=== PATIENT | male | born 1970 | race Hispanic/Latino ===

== ENCOUNTER 2020-02-09 16:26 | Outpatient (CLI) | payer OTHER, SELFPAY ==
[2020-02-09 18:58] LABS: Hemoglobin 14.9 g/dL (14.0-18.0); Mean Corpuscular HGB Conc 35.5 g/dl (32-36); Mean Corpuscular Hemoglobin 31.1 pg (26-34); Mean Corpuscular Volume 87.7 fl (80-100); Mean Platelet Volume 12.2 fl (7.4-10.4); Platelet Count Result 177 k/mm3 (150-375); Red Blood Count 4.79 M/mm3 (4.6-6.20); Red Cell Distribution Width 13.2 % (11.5-14.5); White Blood Count 9.6 K/mm3 (4.5-10.0)
[2020-02-09 19:08] LABS: INR 1.1; Prothrombin Time 13.4 Seconds (11.1-14.7)
[2020-02-09 19:09] LABS: Alanine Aminotransferase 62 U/L (4-50); Albumin Level 4.5 g/dL (3.5-5.1); Alkaline Phosphatase 92 U/L (38-126); Aspartate Amino Transferase 41 U/L (17-59); Bilirubin,Total 0.4 mg/dL (0.2-1.3); Partial Thromboplastin Time 32.6 SECONDS (22.3-36.8)
[2020-02-09 19:16] LABS: Transferrin 275 mg/dL (206-381)
[2020-02-09 19:40] LABS: Erythrocyte Sedimentation Rate 20 mm/hr (0-20)
[2020-02-09 19:44] LABS: Iron 130 ug/dL (49-181)
[2020-02-09 19:54] LABS: Percent Iron Saturation 34 % (20-50)
[2020-02-09 20:19] LABS: Hepatitis B Surface Antigen Negative (Negative)
[2020-02-09 20:24] LABS: Hepatitis B Core IgM Result Negative (Negative)
[2020-02-09 20:36] LABS: Hepatitis B Surface Anti Res Negative; Hepatitis C Virus Antibody Negative (Negative)
[2020-02-13 14:53] LABS: Actin Antibody (IgG) <20 U (<20)
[2020-02-14 11:37] LABS: Mitochondrial (M2) Ab (IgG) <=20.0 U (<=20.0)
[2020-02-14 11:51] LABS: Alpha-1-Antitrypsin, QN 149 mg/dL (83-199); Ceruloplasmin 25 mg/dL (18-36)
== END 2020-02-09 16:27 | disposition home or self-care (01) ==
PROVIDERS: PCP Emergency Medicine; Visit Provider Internal Medicine Gastroenterology
DX: R94.5 Abnormal results of liver function studies (principal)
CPT/HCPCS: 36415; 80076; 82103; 82390; 82728; 83516; 83520; 83540; 83550; 84466; 85027; 85610; 85652; 85730; 86038; 86705; 86706; 86803; 87340

== ENCOUNTER 2020-07-10 09:45 | Outpatient (CLI) | payer OTHER, SELFPAY ==
--- NOTE | ~2020-07-10 | XR_ITS ---
XR chest 2V DATE: 07/10/2020 10:43 INDICATION: Shortness of breath. Covid-positive 4 weeks ago. TECHNIQUE: PA and lateral views COMPARISON: 11/27/2018 portable upright AP chest FINDINGS: Mild patchy infiltrates are noted in the mid and lower lung zones, left greater than right, suggesting bilateral pneumonia. Normal heart size. No hilar or mediastinal enlargement. No pulmonary vascular congestion or pleural e ffusion or pneumothorax. IMPRESSION: Mild patchy bilateral pulmonary infiltrates Reviewed, dictated and finalized at location A. QUE FURNITURE RESTORER
[2020-07-10 11:37] LABS: Hemoglobin A1C 9.2 % (<5.7)
[2020-07-10 12:05] LABS: MALB Creatinine Ratio 29.1 mg/g (0-30); Microalbumin Urine Random 27.4 mg/L (0-16.7)
== END 2020-07-10 09:46 | disposition home or self-care (01) ==
PROVIDERS: PCP Emergency Medicine; Visit Provider Emergency Medicine
DX: R91.8 Other nonspecific abnormal finding of lung field (principal)
CPT/HCPCS: 36415; 71046; 82043; 83036

== ENCOUNTER 2020-07-17 10:08 | Outpatient (CLI) | payer OTHER, SELFPAY ==
--- NOTE | ~2020-07-17 | US_ITS ---
US right upper quadrant INDICATION: Increased liver function test. PROCEDURE: Realtime right upper abdominal ultrasound. COMPARISON: No prior studies for comparison. FINDINGS: The pancreas is normal without focal mass or pancreatic ductal dilation. Increased liver e chotexture, consistent with fatty infiltration. There is a 11.2 cm cyst. There is normal directional flow in the portal vein. The gallbladder is normal without stones, gallbladder wall thickening or pericholecystic fluid. Comm on bile duct measures 6 mm. No sonographic Sandy's sign. IMPRESSION: 1: Fatty infiltration of the liver. 2: 11.2 cm liver cyst. Reviewed, dictated and finalized at location A. SCRUB TECH
== END 2020-07-17 10:09 | disposition home or self-care (01) ==
PROVIDERS: PCP Emergency Medicine; Visit Provider Internal Medicine Gastroenterology
DX: R94.5 Abnormal results of liver function studies (principal); K76.89 Other specified diseases of liver
CPT/HCPCS: 76705

== ENCOUNTER 2020-08-13 14:58 | Outpatient (CLI) | payer OTHER, SELFPAY ==
--- NOTE | ~2020-08-13 | XR_ITS ---
XR chest 2V 08/13/2020 15:18 Indication: Pneumonia Procedure: PA and lateral views of the chest Comparison: Comparison to multiple prior studies sequentially, with oldest reviewed study dated 07/27. Findings: There are linear infiltrates of the left mid lung zone. Heart size normal. Right lung clear . No pleural effusion, edema or pneumothorax. No acute osseous abnormality. Impression: 1: Linear infiltrates of the left midlung zone, most likely atelectasis/scarring. Reviewed, dictated and finalized at location A. G MANAGER Impression: 1: Linear infiltrates of the left midlung zone, most likely atelectasis/scarmallorie velazco
== END 2020-08-13 14:59 | disposition home or self-care (01) ==
LOC: ANHIMG 15:02
PROVIDERS: PCP Emergency Medicine; Visit Provider Emergency Medicine
DX: J18.9 Pneumonia, unspecified organism (principal)
CPT/HCPCS: 71046

== ENCOUNTER 2020-09-20 08:04 | Outpatient (CLI) | payer OTHER, SELFPAY ==
[2020-09-20 08:32] LABS: Hematocrit 43.5 % (42.0-52.0); Hemoglobin 15.2 g/dL (14.0-18.0); Mean Corpuscular HGB Conc 34.9 g/dl (32-36); Mean Corpuscular Hemoglobin 30.3 pg (26-34); Mean Corpuscular Volume 86.8 fl (80-100); Platelet Count Result 195 k/mm3 (150-375); Red Blood Count 5.01 M/mm3 (4.6-6.20); White Blood Count 8.9 K/mm3 (4.5-10.0)
[2020-09-20 08:47] LABS: Hemoglobin A1C 8.1 % (<5.7)
== END 2020-09-20 08:05 | disposition home or self-care (01) ==
LOC: ANHLAB 08:05
PROVIDERS: PCP Emergency Medicine; Visit Provider Emergency Medicine
DX: E11.9 Type 2 diabetes mellitus without complications (principal)
CPT/HCPCS: 36415; 83036; 85027

== ENCOUNTER 2021-02-23 18:52 | Emergency (ER) | payer OTHER, SELFPAY ==
[2021-02-23 19:01] VITALS: BP 138/87; PULSE 57; RESP 16; TEMP 35.8; O2SAT 99
--- NOTE | 2021-02-23 19:23 | ED.GENADULT ---
HPI - General Adult General Chief complaint: Unspecified Stated complaint: bumps in mouth Time Seen by Provider: 02/23/21 19:23 Source: patient Limitations: no limitations History of Present Illness HPI narrative: Willi Roldan is a 50 yo male with the PMH of hypertension diabetes and high cholesterol [facility] of irritation of the roof of his mouth close to his teeth and upper palate that he relates to getting his Covid vaccine on Thursday. However he states that he really has not only had the symptoms in the last 2 days, and only hurts when he eats Related Data Home Medications Medication Instructions Recorded Confirmed lisinopril 02/23/21 metformin mg 02/23/21 simvastatin mg 02/23/21 sitagliptin [Januvia] mg 02/23/21 Allergies Allergy/AdvReac Type Severity Reaction Status Date / Time No Known Allergies Allergy Unverified 08/14/20 09:19 Review of Systems Review of Systems: CONSTITUTIONAL: Denies fever, chills, sweats. EYES: Denies visual changes, redness, discharge. ENT: Denies rhinorrhea, congestion, sore throat, otalgia. CARDIOVASCULAR: Denies chest pain, palpitations, edema. RESPIRATORY: Denies dyspnea, wheezing, cough GASTROINTESTINAL: Denies abdominal pain, nausea, vomiting, diarrhea. GENITOURINARY: Denies dysuria, hematuria, abnormal discharge SKIN: Denies rash or itching. Pain of the roof of his mouth near his upper front teeth NEUROLOGIC: Denies numbness, or focal weakness. PSYCHIATRIC: Denies anxiety or depression. [facility] Past Medical History Medical History Diabetes High cholesterol Hypertension Family History Family History Other Diabetes mellitus Hypertension Social History Social History (Updated 02/23/21 @ 19:30 by Connie Rodriguez CNP) Smoking status: Never smoker Alcohol intake: never Comments At time of signature, I agree with nursing past medical, surgical, social and family history. There is no relevant family history pertinent to the presenting complaint. Exam Narrative: GENERAL: This is a well-nourished, well-developed patient, in mild distress. HEAD: normocephalic, atraumatic. EYES: Sclera clear/white. Vision is grossly intact. EARS: External ears normal, Hearing grossly intact. NOSE: External nose normal without nasal discharge, nares without redness, no rhinorrhea. THROAT: Mucous membranes moist, posterior pharynx pink, small reddish irritation like lesions at roof of mouth similar to mild burn NECK: Neck supple, non-tender CARDIOVASCULAR: Regular rate and rhythm without murmurs, gallops, or rubs. RESPIRATORY: Clear to auscultation. Breath sounds equal bilaterally. No wheezes, rales, or rhonchi. GASTROINTESTINAL: Abdomen soft, large pannus SKIN: warm, intact with no suspicious lesions or rash, good texture and turgor. NEURO: awake, alert, and oriented to person, place and time. There were no obvious focal neurologic abnormalities. Steady gait EXTREMITIES: Normal range of motion. BACK: Nontender without deformity Course Course Emergency Course: Patient here with complaints of pain to the roof of his mouth that he attributes to the Covid vaccine however it started 2 days ago, hurts when he eats Patient given viscous lidocaine to help and told to gargle with salt water Vital Signs Vital signs: Vital Signs Temperature 96.5 F L 02/23/21 19:01 Pulse Rate 57 L 02/23/21 19:01 Respiratory Rate 16 02/23/21 19:01 Blood Pressure 138/87 02/23/21 19:01 Pulse Oximetry 99 02/23/21 19:01 Temperature 96.5 F L 02/23/21 19:01 Pulse Rate 57 L 02/23/21 19:01 Respiratory Rate 16 02/23/21 19:01 Blood Pressure 138/87 02/23/21 19:01 Pulse Oximetry 99 02/23/21 19:01 Medical Decision Making Differential Diagnosis Differential Diagnosis: Gingival disease versus aphthous ulcer versus burn versus poor dentition
== END 2021-02-23 19:38 | disposition home or self-care (01) ==
PROVIDERS: Emergency Provider Nurse Practitioner; PCP Emergency Medicine
DX: K12.0 Recurrent oral aphthae (principal); E11.9 Type 2 diabetes mellitus without complications; E78.00 Pure hypercholesterolemia, unspecified; I10 Essential (primary) hypertension
CPT/HCPCS: 99213; G0463

== ENCOUNTER 2021-05-06 08:51 | Outpatient (CLI) | payer OTHER, SELFPAY ==
--- NOTE | ~2021-05-06 | XR_ITS ---
EXAMINATION: XR chest 2V EXAM DATE: 05/06/2021 09:24 INDICATION: Groundglass opacities and atelectasis. TECHNIQUE: Frontal and lateral projections of the chest obtained and reviewed. Comparison is made to prior examination from 08/13/2020. FINDINGS: The lungs are clear. There are no pleural effusions. The cardiomediastinal silhouette is within normal limits. There is no pneumothorax suspected. The bones and soft tissues are unremarkab le. IMPRESSION: Unremarkable chest x-ray exam. Reviewed, dictated and finalized at location B.
[2021-05-06 09:58] LABS: Hemoglobin A1C 10.6 % (<5.7)
[2021-05-06 10:13] LABS: Creatinine Urine 68.8 mg/dL
[2021-05-06 10:18] LABS: Microalbumin Urine Random 7.6 mg/L (0-16.7)
== END 2021-05-06 08:52 | disposition home or self-care (01) ==
LOC: ANHIMG 08:59
PROVIDERS: PCP Emergency Medicine; Visit Provider Emergency Medicine
DX: E11.9 Type 2 diabetes mellitus without complications (principal)
CPT/HCPCS: 36415; 71046; 82043; 83036

== ENCOUNTER 2022-02-06 10:02 | Outpatient (CLI) | payer OTHER, SELFPAY ==
[2022-02-06 10:41] LABS: Hematocrit 44.8 % (42.0-52.0); Hemoglobin 15.4 g/dL (14.0-18.0); Mean Corpuscular HGB Conc 34.4 g/dl (32-36); Mean Corpuscular Hemoglobin 29.9 pg (26-34); Mean Platelet Volume 10.6 fl (7.4-10.4); Platelet Count Result 219 k/mm3 (150-375); Red Blood Count 5.15 M/mm3 (4.6-6.20); Red Cell Distribution Width 12.4 % (11.5-14.5); White Blood Count 8.2 K/mm3 (4.5-10.0)
[2022-02-06 11:00] LABS: Alanine Aminotransferase 77 U/L (6-50); Albumin Level 4.7 g/dL (3.5-5.1); Alkaline Phosphatase 125 U/L (38-126); Anion Gap 14 mmol/L (8-16); Aspartate Amino Transferase 38 U/L (17-59); Bilirubin,Total 0.6 mg/dL (0.2-1.3); Blood Urea Nitrogen 10 mg/dL (9-20); Calcium 9.4 mg/dL (8.4-10.2); Carbon Dioxide 22 mmol/L (22-30); Chloride 101 mmol/L (98-107); Cholesterol 229 mg/dL (0-200); Estimated Glomerular Filt Rate > 60; Glucose 249 mg/dL (65-110); HDL Direct 36 mg/dL; Sodium 137 mmol/L (137-145); Triglycerides 313 mg/dL (<150)
[2022-02-06 11:11] LABS: LDL Cholesterol Direct 127 mg/dL
[2022-02-06 11:28] LABS: Prostate Specific Antigen 1.2 ng/mL (< OR = 4.0)
[2022-02-06 12:12] LABS: Free T4 Free Thyroxine 1.01 ng/mL (0.78-2.19); Vitamin D 25 Hydroxy 40.5 ng/mL
[2022-02-06 12:34] LABS: Hemoglobin A1C 9.6 % (<5.7)
[2022-02-06 15:26] LABS: Appearance Urine Clear (Clear); Bilirubin Urine Negative (Negative); Color Urine Yellow (Yellow); Glucose Urine UA 3+ mg/dL (Negative); Ketones Urine 1+ mg/dL (Negative); Leukocyte Esterase Ur Negative LEU/UL (NEGATIVE); Nitrate Urine Negative (Negative); Protein Urine Negative (Negative); Specific Grav Ur 1.025 (1.001-1.035); Urobilinogen Urine 0.2 mg/dL (<2.0); pH Urine 5.5 (5.0-9.0)
[2022-02-06 15:33] LABS: Mucus Urine Rare /lpf; Squamous Epithelial Cell Urine Occasional /hpf (Few)
[2022-02-06 15:34] LABS: Add Urine Microscopic? YES; Blood Urine Trace-Intact (Negative)
[2022-02-06 21:45] LABS: Creatinine Urine 133.9 mg/dL
[2022-02-06 21:51] LABS: MALB Creatinine Ratio 11.2 mg/g (0-30)
== END 2022-02-06 10:03 | disposition home or self-care (01) ==
PROVIDERS: PCP Emergency Medicine; Visit Provider Emergency Medicine
DX: E11.9 Type 2 diabetes mellitus without complications (principal); I10 Essential (primary) hypertension; E78.5 Hyperlipidemia, unspecified; K76.89 Other specified diseases of liver
CPT/HCPCS: 36415; 80053; 80061; 81001; 82043; 82306; 83036; 84153; 84439; 84443; 85027; 87086; G0103

== ENCOUNTER 2023-01-31 21:17 | Emergency (ER) | payer OTHER, SELFPAY ==
--- NOTE | ~2023-01-31 | XR_ITS ---
EXAMINATION: XR chest 2V 01/31/2023 23:31 INDICATION: Chest pain PROCEDURE: PA and lateral views of the chest COMPARISON: Comparison to multiple prior studies sequentially, with oldest reviewed study dated 02/2019. FINDINGS: The lungs are clear. The cardiomediastinal silhouette is within normal limits. There are no pleural effusions. There is no pneumothorax suspected. There is chronic lingular atelectasis/sca rring unchanged. IMPRESSION: 1: NO ACUTE CARDIOPULMONARY DISEASE. Reviewed, dictated and finalized at location A.
[2023-01-31 21:23] VITALS: BP 154/84; PULSE 102; RESP 20; TEMP 37; O2SAT 97
[2023-01-31 21:58] VITALS: BP 150/94; PULSE 95; RESP 24; TEMP 36.4; O2SAT 100
[2023-01-31] MEDS: SODIUM CHLORIDE 0.9% IV 2,000 ML 999 ML (23:00)
[2023-01-31 23:22] LABS: Alanine Aminotransferase 46 U/L (6-50); Albumin Level 4.6 g/dL (3.5-5.1); Anion Gap 13 mmol/L (8-16); Aspartate Amino Transferase 39 U/L (17-59); Bilirubin,Total 0.9 mg/dL (0.2-1.3); Blood Urea Nitrogen 7 mg/dL (9-20); Calcium 8.9 mg/dL (8.4-10.2); Carbon Dioxide 23 mmol/L (22-30); Chloride 101 mmol/L (98-107); Estimated CRCL calculation 135 ml/min; Estimated Glomerular Filt Rate > 60; Glucose 269 mg/dL (65-110); Potassium 3.8 mmol/L (3.4-5.0); Sodium 137 mmol/L (137-145)
[2023-01-31 23:23] LABS: Alkaline Phosphatase 134 U/L (38-126); Lipase 50 U/L (23-300)
[2023-01-31] MEDS: IBUPROFEN 400 MG TABLET 800 MG (23:27)
--- NOTE | 2023-01-31 23:32 | ED.GENADULT ---
HPI - General Adult General Chief complaint: Nausea/Vomiting/Diarrhea Stated complaint: chills/vomiting/bodyaches Time Seen by Provider: 01/31/23 21:46 History of Present Illness HPI narrative: this is a 52-year-old male presenting with flu-like symptoms x2-3 days. patient is also complaining of fever chills and body aches. Patient denies nausea vomiting diarrhea chest pain difficulty breathing. patient says that he has been urinating more than usual. He is not taking his metformin as he does not feel well. Patient denies any other complaints. Patient took Tylenol prior to arrival and said he feels much better. Related Data Home Medications Medication Instructions Recorded Confirmed lisinopril 20 mg tablet 02/23/21 metformin 1,000 mg tablet mg 02/23/21 simvastatin 20 mg tablet mg 02/23/21 sitagliptin phosphate 100 mg mg 02/23/21 tablet (Januvia) Allergies Allergy/AdvReac Type Severity Reaction Status Date / Time No Known Allergies Allergy Verified 01/31/23 21:18 [facility] Past Medical History Medical History Diabetes High cholesterol Hypertension Family History Family History Other Diabetes mellitus Hypertension Social History Social History Smoking status: Never smoker Alcohol intake: never Exam Narrative: APPEARANCE: No apparent distress. Well-appearing Head: atraumatic. EYES: EOMI, NOSE: Atraumatic NECK: Trachea midline RESPIRATORY: No increased rate of breathing, clear to auscultation CARDIOVASCULAR: RRR, no peripheral edema ABDOMINAL: Non-distended, soft nontender no guarding or rebound MUSCULOSKELETAl: No obvious deformities NEURO: Alert. Moving 4/4 extremities SKIN:: Warm, dry. Normal color PSYCHIATRIC: Normal affect Course Vital Signs Vital signs: Vital Signs Temperature 98.6 F 01/31/23 21:23 Pulse Rate 102 H 01/31/23 21:23 Respiratory Rate 20 01/31/23 21:23 Blood Pressure 154/84 H 01/31/23 21:23 Pulse Oximetry 97 01/31/23 21:23 Oxygen Delivery Room Air 01/31/23 21:23 Temperature 97.5 F L 01/31/23 21:58 Pulse Rate 65 02/01/23 01:01 Respiratory Rate 20 02/01/23 01:01 Blood Pressure 143/85 H 02/01/23 01:01 Pulse Oximetry 95 02/01/23 01:01 Oxygen Delivery Room Air 01/31/23 21:23 Medical Decision Making MDM Narrative Medical decision making narrative: -Presentation: 52-year-old male presenting with 3 days of flu-like symptoms. 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 CBC normal. Metabolic panel unremarkable. UA negative. COVID positive. patient is vaccinated. No respiratory distress or oxygen requirements. Chest x-ray unremarkable. -Discussion of Management/Consultants: none -Dx tests considered but not ordered: none -Procedures: none -Interventions: 2 L normal saline, 800 mg Motrin -Shared decision making / Disposition: patient is positive for COVID. He is well appearing with stable vital signs. He is vaccinated and low risk. Patient will be discharged with primary care follow-up. -RX Motrin, Tylenol Vital Signs Vital Signs: Vital Signs Temperature 98.6 F 01/31/23 21:23 Pulse Rate 102 H 01/31/23 21:23 Respiratory Rate 20 01/31/23 21:23 Blood Pressure 154/84 H 01/31/23 21:23 Pulse Oximetry 97 01/31/23 21:23 Oxygen Delivery Room Air 01/31/23 21:23 Temperature 97.5 F L 01/31/23 21:58 Pulse Rate 65 02/01/23 01:01 Respiratory Rate 20 02/01/23 0
[2023-01-31 23:45] LABS: Basophils Absolute Auto 0.1 K/mm3 (0.0-0.1); Basophils Percent Auto 0.6 % (0.2-1.2); Eosinophils Absolute Auto 1.1 K/mm3 (0-0.3); Eosinophils Percent Auto 11.1 % (0-4.4); Hematocrit 42.2 % (42.0-52.0); Immature Granulocyte Absolute 0.03 K/mm3 (0.00-0.031); Immature Granulocyte Percent A 0.3 % (0-0.5); Lymphocytes Percent Auto 13.7 % (18.3-44.2); Mean Corpuscular HGB Conc 35.5 g/dl (32-36); Mean Corpuscular Hemoglobin 30.9 pg (26-34); Mean Platelet Volume 10.3 fl (7.4-10.4); Monocytes Absolute Auto 1.2 K/mm3 (0.1-0.6); Neutrophils Absolute Auto 5.8 K/mm3 (1.3-6.7); Neutrophils Percent Auto 61.3 % (45.5-73.1); Platelet Count Result 198 k/mm3 (150-375); Red Blood Count 4.85 M/mm3 (4.6-6.20); Red Cell Distribution Width 12.1 % (11.5-14.5); White Blood Count 9.5 K/mm3 (4.5-10.0)
[2023-01-31 23:54] LABS: Influenza A QL RT-PCR Negative (Negative); Influenza B QL RT-PCR Negative (Negative); RSV RNA, RT-PCR Negative (Negative); SARS-CoV-2 RNA PCR Positive (Negative)
[2023-02-01 00:12] VITALS: BP 138/76; PULSE 72; RESP 19; O2SAT 97
[2023-02-01 00:54] LABS: Appearance Urine Clear (Clear); Bilirubin Urine Negative (Negative); Blood Urine Negative (Negative); Color Urine Yellow (Yellow); Glucose Urine UA 1+ mg/dL (Negative); Ketones Urine Negative (Negative); Leukocyte Esterase Ur Negative LEU/UL (Negative); Nitrate Urine Negative (Negative); Protein Urine Negative (Negative); Specific Grav Ur 1.008 (1.001-1.035); Urobilinogen Urine 0.2 mg/dL (<2.0); pH Urine 6.5 (5.0-9.0)
[2023-02-01 00:55] LABS: Add Urine Microscopic? YES
[2023-02-01 00:56] LABS: RBC Urine 0-2 /hpf (0-2); Squamous Epithelial Cell Urine Few /hpf (Few); WBC Urine 0-3 /hpf (0-3)
[2023-02-01 01:01] VITALS: BP 143/85; PULSE 65; RESP 20; O2SAT 95
[2023-02-01 01:19] VITALS: BP 129/83; PULSE 68; RESP 19; TEMP 36.4; O2SAT 95
== END 2023-02-01 01:21 | disposition home or self-care (01) ==
PROVIDERS: Emergency Provider Emergency Medicine; PCP Emergency Medicine
DX: U07.1 COVID-19 (principal); E11.9 Type 2 diabetes mellitus without complications; E78.00 Pure hypercholesterolemia, unspecified; I10 Essential (primary) hypertension; Z79.84 Long term (current) use of oral hypoglycemic drugs
CPT/HCPCS: 36415; 71046; 80053; 81001; 83690; 85025; 87637; 96360; 99283; A9270; J7030

== ENCOUNTER 2024-05-28 08:26 | Outpatient (CLI) | payer OTHER, SELFPAY ==
[2024-05-28 10:16] LABS: Hematocrit 45.8 % (42.0-52.0); Hemoglobin 15.9 g/dL (14.0-18.0); Mean Corpuscular HGB Conc 34.7 g/dl (32-36); Mean Corpuscular Hemoglobin 30.3 pg (26-34); Mean Corpuscular Volume 87.4 fl (80-100); Mean Platelet Volume 10.3 fl (7.4-10.4); Platelet Count Result 225 k/mm3 (150-375); Red Blood Count 5.24 M/mm3 (4.6-6.20); Red Cell Distribution Width 11.8 % (11.5-14.5)
[2024-05-28 10:19] LABS: Add Urine Microscopic? NO; Appearance Urine Clear (Clear); Bilirubin Urine Negative (Negative); Blood Urine Negative (Negative); Color Urine Yellow (Yellow); Glucose Urine UA 3+ mg/dL (Negative); Ketones Urine Trace mg/dL (Negative); Leukocyte Esterase Ur Negative LEU/UL (Negative); Nitrate Urine Negative (Negative); Protein Urine Negative (Negative); Specific Grav Ur 1.022 (1.001-1.035); Urobilinogen Urine 0.2 mg/dL (<2.0)
[2024-05-28 10:36] LABS: Alanine Aminotransferase 75 U/L (6-50); Albumin Level 4.9 g/dL (3.5-5.1); Alkaline Phosphatase 131 U/L (38-126); Anion Gap 12 mmol/L (4-12); Aspartate Amino Transferase 43 U/L (17-59); Bilirubin,Total 0.9 mg/dL (0.2-1.3); Blood Urea Nitrogen 9 mg/dL (9-20); Calcium 9.5 mg/dL (8.4-10.2); Carbon Dioxide 26 mmol/L (22-30); Chloride 95 mmol/L (98-107); Cholesterol 234 mg/dL (0-200); Estimated Glomerular Filt Rate > 60; Glucose 286 mg/dL (65-110); HDL Direct 41 mg/dL; Potassium 4.2 mmol/L (3.4-5.0); Sodium 133 mmol/L (137-145); Triglycerides 285 mg/dL (<150)
[2024-05-28 10:46] LABS: LDL Cholesterol Direct 141 mg/dL
[2024-05-28 11:30] LABS: Free T4 Free Thyroxine 1.03 ng/mL (0.78-2.19)
[2024-05-28 11:53] LABS: Creatinine Urine 51.3 mg/dL
[2024-05-28 11:57] LABS: MALB Creatinine Ratio 12.7 mg/g (0-30); Microalbumin Urine Random 6.5 mg/L (0-16.7)
== END 2024-05-28 08:27 | disposition home or self-care (01) ==
PROVIDERS: PCP Emergency Medicine; Visit Provider Emergency Medicine
DX: K76.0 Fatty (change of) liver, not elsewhere classified (principal)
CPT/HCPCS: 36415; 80053; 80061; 81003; 82043; 82306; 83036; 84153; 84439; 84443; 85027

== ENCOUNTER 2024-05-31 08:42 | Outpatient (CLI) | payer OTHER, SELFPAY ==
--- NOTE | ~2024-05-31 | US_ITS ---
RIGHT UPPER QUADRANT ABDOMINAL ULTRASOUND (Doppler ultrasound interrogation techniques used as needed for this exam.) Ordering provider: Michael Herrera MD History: . Liver cyst . Comparison: None. FINDINGS: PANCREAS: Normal echotexture and size. PORTAL VEIN: Hepatopedal flow demonstrated. LIVER: Normal size and increased echogenicity. Measures 17.2 cm. No focal hepatic lesions or perihepa tic fluid collections are identified. Multiple cysts are seen with the largest measures 8.4 x 8.4 x 9.8 cm. Internal echoes seen in some cysts suggestive of a complex cysts. BILIARY DUCTS: No intra or extrahepatic biliary dilation. Common bile duct measures 5 mm in diameter which is normal for patient's age. GALLBLADDER: Normal. No stones, sludge, gallbladder wall thickening or pericholecystic fluid. Measures 2.8 cm. Negative sonographic Sandy's sign. RIGHT KIDNEY: Normal size measures 6.7 x 13.8 x 6.2 cm.. No hydronephrosis, solid renal mass, renal c alculi or perinephric fluid collections. No renal cysts. FREE FLUID: None visualized within the upper abdomen. IMPRESSION: Multiple hepatic cysts. Mild fat infiltration. Otherwise, normal right upper quadrant ultrasound. Reviewed, dictated and finalized at location A. ER CONTROL SUPERVISOR IMPRESSION: Multiple hepatic cysts. Mild fat infiltration. Otherwise, normal right upper qu adrant ultrasound.
== END 2024-05-31 08:43 | disposition home or self-care (01) ==
PROVIDERS: PCP Emergency Medicine; Visit Provider Emergency Medicine
DX: K76.89 Other specified diseases of liver (principal); K76.0 Fatty (change of) liver, not elsewhere classified
CPT/HCPCS: 76705

== ENCOUNTER 2024-07-01 05:03 | Emergency (ER) | payer OTHER, SELFPAY ==
--- NOTE | ~2024-07-01 | XR_ITS ---
Portable chest x-ray Comparison: 01/31/2023 Clinical History: Shortness of breath Findings: Lungs are clear, without focal consolidation or pleural effusion. Cardiomediastinal silho uette is stable. Bones and soft tissues are unremarkable. Impression: Clear lungs. Reviewed, dictated and finalized at location . ESSMAKER APPRENTICE Impression: Clear lungs.
--- NOTE | 2024-07-01 05:05 | ECG_ITS ---
Test Date: 2024-07-01 05:16:39 Measurements Intervals [place] Rate: 80 P: 8 MO: 158 QRS: -62 QRSD: 118 T: 23 QT: 324 QTc: 375 Interpretive Statements SINUS RHYTHM RIGHT BUNDLE BRANCH BLOCK [120+ ms QRS DURATION, UPRIGHT V1, 40+ ms S IN I/aVL/V4/V5/V6] LEFT ANTERIOR FASCICULAR BLOCK [QRS AXIS <= -45, QR IN I, RS IN II] No previous ECG available for comparison Electronically Signed On 07-01-2024 12:20:44 PIPELINE ENGINEER by Freddy Dash M.D.
[2024-07-01 05:12] VITALS: BP 160/101; PULSE 79; RESP 14; TEMP 36.8; O2SAT 97
[2024-07-01 05:22] VITALS: O2SAT 96
[2024-07-01 05:31] VITALS: PULSE 76
[2024-07-01 05:34] LABS: Basophils Absolute Auto 0.1 K/mm3 (0.0-0.1); Basophils Percent Auto 0.8 % (0.2-1.2); Eosinophils Absolute Auto 1.5 K/mm3 (0-0.3); Eosinophils Percent Auto 15.3 % (0-4.4); Hematocrit 45.2 % (42.0-52.0); Hemoglobin 15.7 g/dL (14.0-18.0); Immature Granulocyte Absolute 0.03 K/mm3 (0.00-0.031); Immature Granulocyte Percent A 0.3 % (0-0.5); Lymphocytes Absolute Auto 4.15 K/mm3 (0.9-3.2); Lymphocytes Percent Auto 42.6 % (18.3-44.2); Mean Corpuscular HGB Conc 34.7 g/dl (32-36); Mean Corpuscular Volume 89.3 fl (80-100); Mean Platelet Volume 10.3 fl (7.4-10.4); Monocytes Absolute Auto 0.8 K/mm3 (0.1-0.6); Monocytes Percent Auto 8.2 % (2.6-8.5); Neutrophils Absolute Auto 3.2 K/mm3 (1.3-6.7); Neutrophils Percent Auto 32.8 % (45.5-73.1); Platelet Count Result 217 k/mm3 (150-375); Red Blood Count 5.06 M/mm3 (4.6-6.20); Red Cell Distribution Width 12.3 % (11.5-14.5); White Blood Count 9.7 K/mm3 (4.5-10.0)
[2024-07-01 05:45] LABS: Alanine Aminotransferase 57 U/L (6-50); Albumin Level 4.8 g/dL (3.5-5.1); Alkaline Phosphatase 108 U/L (38-126); Anion Gap 9 mmol/L (4-12); Aspartate Amino Transferase 37 U/L (17-59); Bilirubin,Total 0.9 mg/dL (0.2-1.3); Blood Urea Nitrogen 9 mg/dL (9-20); Calcium 9.6 mg/dL (8.4-10.2); Carbon Dioxide 30 mmol/L (22-30); Chloride 99 mmol/L (98-107); Estimated CRCL calculation 111 ml/min; Estimated Glomerular Filt Rate > 60; Glucose 182 mg/dL (65-110); Potassium 3.6 mmol/L (3.4-5.0); Sodium 138 mmol/L (137-145)
[2024-07-01 06:08] VITALS: BP 148/89; PULSE 69; RESP 21; O2SAT 96
[2024-07-01 06:08] LABS: Influenza A QL RT-PCR Negative (Negative); Influenza B QL RT-PCR Negative (Negative); RSV RNA, RT-PCR Negative (Negative); SARS-CoV-2 RNA PCR Negative (Negative)
[2024-07-01 07:18] VITALS: BP 117/70; PULSE 70; RESP 18; O2SAT 96
[2024-07-01 08:16] LABS: Troponin I < 0.012 ng/mL (0.000-0.034)
[2024-07-01 08:16] LABS: Lipase 59 U/L (23-300)
[2024-07-01 08:30] LABS: Troponin I < 0.012 ng/mL (0.000-0.034)
--- NOTE | 2024-07-01 08:57 | ED.GENADULT ---
HPI - General Adult General Chief complaint: Shortness of Breath/Dyspnea Stated complaint: Shortness of breath Time Seen by Provider: 07/01/24 07:09 History of Present Illness HPI narrative: Patient is a 54-year-old male who presents ER with chest discomfort and nausea as well as shortness of breath. Began early in the morning. Unable to describe the discomfort. It does cause him to be nauseous. On arrival here it is all been alleviated. He has diabetes and high cholesterol. No exertional discomfort. No history of heart disease. No fevers or chills or sweats. He has noticed this previously in the mornings. Related Data Home Medications ?Medication ?Instructions ?Recorded ?Confirmed ?Last Taken ?Type lisinopril 20 mg tablet 02/23/21 Unknown History metformin 1,000 mg tablet mg 02/23/21 Unknown History simvastatin 20 mg tablet mg 02/23/21 Unknown History sitagliptin phosphate 100 mg mg 02/23/21 Unknown History tablet (Januvia) Allergies Allergy/AdvReac Type Severity Reaction Status Date / Time No Known Allergies Allergy Verified 07/01/24 05:03 Review of Systems Review of Systems: All systems reviewed & are unremarkable except as noted in HPI and below Constitutional: Constitutional: Reports no additional constitutional complaints ENT: Reports system reviewed and no additional complaints, except as documented Cardiovascular: Cardiovascular: Reports no additional cardiovascular complaints Gastrointestinal: Gastrointestinal: Reports no additional gastrointestinal complaints PMFSH Past Medical History Medical History Diabetes High cholesterol Hypertension Family History Family History Other Diabetes mellitus Hypertension Social History Social History Smoking status: Never smoker Alcohol intake: never Exam Narrative: GENERAL: Well-appearing, well-nourished, and in no acute distress. HEAD: Normocephalic, atraumatic. ENT: Mucous membranes moist. CHEST: Clear to auscultation. No respiratory distress. HEART: Regular rate and rhythm. Normal peripheral pulses. ABDOMEN: Soft, nontender, nondistended. EXTREMITIES: Normal range of motion. No edema. SKIN: Warm, dry, no rash. NEURO: Alert and oriented x3. PSYCH: Normal mood and affect. Course Course Emergency Course: Patient has no discomfort here. Troponin negative x2. He has declined pain and nausea medication. Appropriate for discharge home. Will start PPI. Vital Signs Vital signs: Vital Signs Temperature 98.3 F 07/01/24 05:12 Pulse Rate 79 07/01/24 05:12 Respiratory Rate 14 07/01/24 05:12 Blood Pressure 160/101 H 07/01/24 05:12 Pulse Oximetry 97 07/01/24 05:12 Oxygen Delivery Room Air 07/01/24 05:12 Temperature 98.3 F 07/01/24 05:12 Pulse Rate 70 07/01/24 07:18 Respiratory Rate 18 07/01/24 07:18 Blood Pressure 117/70 07/01/24 07:18 Pulse Oximetry 96 07/01/24 07:18 Oxygen Delivery Room Air 07/01/24 05:22 Medical Decision Making Vital Signs Vital Signs: Vital Signs Temperature 98.3 F 07/01/24 05:12 Pulse Rate 79 07/01/24 05:12 Respiratory Rate 14 07/01/24 05:12 Blood Pressure 160/101 H 07/01/24 05:12 Pulse Oximetry 97 07/01/24 05:12 Oxygen Delivery Room Air 07/01/24 05:12 Temperature 98.3 F 07/01/24 05:12 Pulse Rate 70 07/01/24 07:18 Respiratory Rate 18 07/01/24 07:18 Blood Pressure 117/70 07/01/24 07:18 Pulse Oximetry 96 07/01/24 07:18 Oxygen Delivery Room Air 07/01/24 05:22 Lab Data 07/01/24 05:27 07/01/24 05:27 Labs: Lab Results 07/01/24 07/01/24 Range/Units 05:27 07:59 WBC 9.7 (4.5-10.0) K/mm3 RBC 5.06 (4.6-6.20) M/mm3 Hgb 15.7 (14.0-18.0) g/dL Hct 45.2 (42.0-52.0) % MCV 89.3 (80-100) fl MCH 31.0 (26-34) pg MCHC 34.7 (32-36) g/dl RDW 12.3 (11.5-14.5) % Plt Count 217 (150-375) k/mm3 MPV 10.3 (7.4-10.4) fl Immature Gran % (Auto) 0.3 (0-0.5) % Neut % (Auto) 32.8 L (45.5-73.1) % Lymph % (Auto) 42.6 (18.3-44.2) % [place] % (Auto) 8.2 (2.6-8.5) % Eos % (Auto) 15.3 H (0-4.4) % Baso % (Auto) 0.8 (0.2-1.2) % Lymph # (Auto) 4.15 H (0.9-3.2) K/mm3 [place] # (Auto) 0.8 H (0.1-0.6) K/mm3 Eos # (Auto) 1.5 H (0-0.3) K/mm3 Baso # (Auto) 0.1 (0.0-0.1) K/mm3 Abs Immat Gran (auto) 0.03 (0.00-0.031) K/mm3 Absolute Neuts (auto) 3.2 (1.3-6.7) K/mm3 Absolute Nucleated RBC 0.000 (0.0-0.012) K/mm3 Nucleated RBC % 0.0 (0.0-0.2) % Sodium 138 (137-145) mmol/L Potassium 3.6 (3.4-5.0) mmol/L Chloride 99 (98-107) mmol/L Carbon Dioxide 30 (22-30) mmol/L Anion Gap 9 (4-12) mmol/L BUN 9 (9-20) mg/dL Creatinine 0.70 (0.7-1.3) mg/dL Estim Creat Clear Calc 111 ml/min Estimated GFR > 60 (59 - ) Glucose 182 H (65-110) mg/dL Calcium 9.6 (8.4-10.2) mg/dL Total Bilirubin 0.9 (0.2-1.3) mg/dL AST 37 (17-59) U/L ALT 57 H (6-50) U/L Alkaline Phosphatase 108 (38-126) U/L Troponin I < 0.012 < 0.012 (0.000-0.034) ng/mL Total Protein 8.0 (6.3-8.2) g/dL Albumin 4.8 (3.5-5.1) g/dL Lipase 59 (23-300) U/L Influenza A (RT-PCR) Negative (Negative) Influenza B (RT-PCR) Negative (Negative) RSV (RT-PCR) Negative (Negative) SARS-CoV-2 RNA (RT-PCR) Negative (Negative) Imaging Data Radiologist's impression: ITS Impressions Chest X-Ray 07/01/24 06:05 Impression: Clear lungs. ECG Data EKG #1: ECG completion date: 07/01/24 ECG completion time: 05:16 EKG Interpretation: normal rate (80), sinus rhythm, non-specific ST changes and RBBB Discharge Plan Discharge Clinical Impression: Vomiting, Chest pain Patient Disposition: Home, Self-Care Condition: Stable Instructions: Chest Pain (ED) Additional Instructions: Please return to the emergency department if you develop severe and persistent chest pain, difficulty breathing, dizziness, leg swelling or if you are coughing up blood as these can be signs of a medical emergency. Please call your doctor for a follow up appointment to determine the need for further testing. Patient Language: American Prescriptions: New pantoprazole 20 mg tablet,delayed release (DR/EC) 20 mg PO HS 28 Days Qty: 28 0RF ondansetron 4 mg tablet,disintegrating 4 mg PO Q6H PRN (Reason: nausea and vomiting) Qty: 10 0RF No Action lisinopril 20 mg tablet simvastatin 20 mg tablet metformin 1,000 mg tablet Januvia 100 mg tablet lidocaine HCl [Lidocaine Viscous] 2 % solution 1 applic mucous membrane TID PRN (Reason: pain) Qty: 100 0RF ibuprofen 800 mg tablet 800 mg PO TID PRN (Reason: pain) 7 Days Qty: 21 0RF acetaminophen 500 mg tablet 1,000 mg PO TID PRN (Reason: magdiel) 7 Days Qty: 42 0RF Follow-up/Referrals: Michael Herrera MD [Primary Care Provider] - 1 Week Quality HEART score for chest pain patients History: slightly suspicious ECG: non specific repolarization disturbance/LBTB/PM Age: > 45 and < 65 years Risk factors: 1 or 2 risk factors Troponin: < or = to 1x normal limit Heart score: 3
[2024-07-01 09:16] VITALS: BP 131/86; PULSE 75; RESP 16; O2SAT 100
== END 2024-07-01 09:18 | disposition home or self-care (01) ==
PROVIDERS: Emergency Medicine; Emergency Provider Emergency Medicine; PCP Emergency Medicine
DX: R07.9 Chest pain, unspecified (principal); R11.10 Vomiting, unspecified; Z20.822 Contact with and (suspected) exposure to COVID-19; I10 Essential (primary) hypertension; E11.9 Type 2 diabetes mellitus without complications; E78.00 Pure hypercholesterolemia, unspecified; I45.2 Bifascicular block; Z79.899 Other long term (current) drug therapy; Z79.84 Long term (current) use of oral hypoglycemic drugs
CPT/HCPCS: 36415; 71045; 80053; 83690; 84484; 85025; 87637; 93005; 99284

== ENCOUNTER 2025-07-06 21:58 | Emergency (ER) | payer OTHER, SELFPAY ==
[2025-07-06 22:14] VITALS: BP 145/90; PULSE 113; RESP 20; TEMP 38; O2SAT 97
--- NOTE | 2025-07-06 22:48 | PC.NURSE ---
Pt walked out before seeing provider
== END 2025-07-06 23:17 | disposition left against medical advice (07) ==
LOC: ANHED 23:07
PROVIDERS: PCP Emergency Medicine
DX: R51.9 Headache, unspecified (principal)
CPT/HCPCS: 99199